=== PATIENT | female | born 1955 | race African-American/Black ===

== ENCOUNTER 2017-08-27 09:16 | Outpatient (CLI) | payer OTHER ==
--- NOTE | 2017-08-27 14:27 | Mammography Report ---
BILATERAL DIGITAL SCREENING MAMMOGRAM with CAD: 08/27/17 09:16:00 CLINICAL: Routine screening. COMPARISON: 01/02/16 FINDINGS: There are bilateral scattered areas of fibroglandular density.No mass, architectural distortion or suspicious calcifications. IMPRESSION: No mammographic evidence of malignancy. BI-RADS CATEGORY: 1 -- Negative RECOMMENDATION: Routine mammographic screening in one year. COMMENT: Patient follow-up letters are generated by our [email or web address] application.
== END 2017-08-27 09:17 | disposition home or self-care (01) ==
LOC: SPVWC 09:16
PROVIDERS: ATTEND Family Medicine Adult Medicine
DX: Z12.31 Encounter for screening mammogram for malignant neoplasm of breast (principal)
CPT/HCPCS: 77067; G0202

== ENCOUNTER 2018-02-18 09:47 | Outpatient (CLI) | payer OTHER ==
--- NOTE | 2018-02-24 12:56 | Fluoroscopy Report ---
BARIUM SWALLOW: History: Dysphagia. The patient swallows barium without difficulty demonstrating normal coordination. The cervical and thoracic portions of the esophagus demonstrate normal contours and there is normal peristalsis. There is no evidence of a hiatus hernia and no reflux is demonstrated. The patient was able to pass a barium tablet without difficulty. 41 fluoroscopic images were captured. IMPRESSION: Unremarkable esophagus.
== END 2018-02-18 09:48 | disposition home or self-care (01) ==
LOC: FLUORO 09:47
PROVIDERS: ATTEND Family Medicine Adult Medicine
DX: R13.19 Other dysphagia (principal)
CPT/HCPCS: 74220

== ENCOUNTER 2019-06-27 13:16 | Outpatient (CLI) | payer OTHER ==
--- NOTE | 2019-06-27 15:31 | XRay Report ---
Lumbosacral spine, 3 views INDICATION: BACK PAIN. COMPARISON: None. IMPRESSION: Normal alignment. Moderate multilevel degenerative disc disease and facet arthropathy a re identified. L1-2 and L2-3 appear to be the most affected levels. No evidence for fracture or bony lesion. The sacrum and SI joints are unremarkable. Signer Name: Oscar Moctezuma Jr, MD Signed: 06/27/2019 3:26 PM Workstation Name: [id number]
== END 2019-06-27 13:17 | disposition home or self-care (01) ==
LOC: XRAY 13:16
PROVIDERS: ATTEND Family Medicine Adult Medicine
DX: M54.31 Sciatica, right side (principal)
CPT/HCPCS: 72100